=== PATIENT | female | born 1995 | race Caucasian/White ===

== ENCOUNTER 2021-03-31 08:43 | Emergency (ER) | payer OTHER ==
[~2021-03-31] VITALS: Ht 157.5 cm; Wt 56.0 kg
[2021-03-31 08:52] VITALS: BP 117/68
== END 2021-03-31 09:59 | disposition home or self-care (01) ==
LOC: EMS 08:43
DX: Z11.1 Encounter for screening for respiratory tuberculosis (principal)
CPT/HCPCS: 71045; 99283